=== PATIENT | female | born 1950 | race Caucasian/White ===

== ENCOUNTER → 2017-03-15 | Outpatient (CLI) | payer OTHER ==
[~2017-03-15] MED LIST: BIFI4CAP PO; CITA40TA5 PO; DOCU-30 PO; ENDUR-ACIN PO; HYDR2TAB40 PO; LEVO137T22 PO; LORA-438 PO; NAPR220T77 PO; OXYB5TAB7 PO; OXYC-223 PO; OXYC10TA32 PO; TRAM50TA2 PO; VITAMIN C PO; [UNRECOGNIZED DRUG - OTHER] PO; [UNRECOGNIZED DRUG - OTHER] PO
== END | disposition home or self-care (01) ==
LOC: CFH 11:20
PROVIDERS: ATTEND Obstetrics & Gynecology Gynecology
DX: Z12.31 Encounter for screening mammogram for malignant neoplasm of breast (principal)
CPT/HCPCS: G0202

== ENCOUNTER 2019-10-16 11:08 | Day surgery (SDC) | payer MEDICARE ==
[~2019-10-16] VITALS: Ht 167.6 cm; Wt 87.4 kg
[~2019-10-16 11:08] MED LIST changes: +DOCU-131 PO; -DOCU-30 PO; -LEVO137T22 PO; +LEVO137T25 PO; -LORA-438 PO; +LORA-864 PO; +OXYB5TAB10 PO; -OXYB5TAB7 PO; -OXYC-223 PO; +OXYC-306 PO; -OXYC10TA32 PO; +OXYC10TA47 PO
[2019-10-16] MEDS ORDERED: SODIUM CHLORIDE 0.9% 1,000 ML IV SCH (12:00)
[2019-10-16] MEDS ORDERED: PLEASE ENTER HEIGHT AND WEIGHT MC SCH (12:00)
[2019-10-16 12:01] VITALS: BP 118/80
[2019-10-16] MEDS ORDERED: SERTRALINE PO (12:04)
[2019-10-16] MEDS ORDERED: LIDOCAINE 1%, 10ML ONE (12:30)
[2019-10-16] MEDS ORDERED: FLUMAZENIL 0.1 MG/1 ML, 5ML ONE (12:51)
[2019-10-16] MEDS ORDERED: FENTANYL PF 100 MCG/2ML ONE (12:51)
[2019-10-16] MEDS ORDERED: NALOXONE 1 MG/ML, 2ML ONE (12:51)
[2019-10-16] MEDS ORDERED: MIDAZOLAM 1 MG/ML, 5ML ONE (12:51)
== END 2019-10-16 15:30 | disposition home or self-care (01) ==
LOC: OUT 11:08 → EDSTATUS 13:00 → OUT 15:30
PROVIDERS: ATTEND Internal Medicine Gastroenterology
DX: K76.0 Fatty (change of) liver, not elsewhere classified (principal); K75.89 Other specified inflammatory liver diseases; Z88.6 Allergy status to analgesic agent; Z88.1 Allergy status to other antibiotic agents; Z88.8 Allergy status to other drugs, medicaments and biological substances
CPT/HCPCS: 47000; 74150; 76942; 88307; 88313; 99156; 99157; J2250; J3010; J7030; J2310